=== PATIENT | female | born 1955 | race Two or more races ===

== ENCOUNTER 2023-02-07 09:24 | Emergency (ER) | payer OTHER ==
[~2023-02-07] VITALS: Ht 160 cm; Wt 104.3 kg
[2023-02-07 11:14] LABS: HEMATOCRIT 42.9 % (36.0-45.00); HEMOGLOBIN 13.8 g/dL (12.0-15.00); MEAN CELL VOLUME 87.7 fL (80.00-100.00); MEAN CORPUSCULAR HEMOGLOBIN 28.2 pg (27.00-32.0); MEAN CORPUSCULAR HGB CONC 32.1 g/dl (32.0-36.0); RED BLOOD COUNT 4.89 M/uL (4.00-6.00); RED CELL DISTRIBUTION WIDTH 14.2 % (11.5-14.5)
[2023-02-07 11:53] LABS: URINE APPEARANCE Turbid; URINE BILIRRUBIN Negative (NEGATIVE); URINE BLOOD Large; URINE COLOR Dark Yellow; URINE GLUCOSE Negative (NEGATIVE); URINE LEUKOCYTE Large; URINE NITRATE Negative; URINE PROTEIN 30 (NEGATIVE)
[2023-02-07 11:56] LABS: URINE EPITHELIAL CELLS 11.2 uL (0.0-38.8); URINE RBC 2787.3 uL (0.0-20.8); URINE WBC 1525.7 uL (0.0-23.2)
[2023-02-07 11:58] LABS: BILIRUBIN TOTAL 0.58 mg/dL (0.3-1.2); CALCIUM 9.4 mg/dL (8.5-10.1); CREATININE SERUM 0.88 mg/dL (0.55-1.02); GFR 64.09; GLOBULINA 4.4 G/DL (2.4-3.5); POTASSIUM 4.06 mEq/L (3.5-5.1); TOTAL PROTEIN 8.4 gm/dL (6.4-8.2)
[2023-02-07 12:11] LABS: PLATELET COUNT 185 K/uL (150-450)
[2023-02-07] MEDS ORDERED: CEPHALEXIN500 MG PO (12:12)
== END 2023-02-07 12:44 | disposition home or self-care (01) ==
LOC: ER 09:24
PROVIDERS: General Practice
DX: N39.0 Urinary tract infection, site not specified (principal); K57.30 Diverticulosis of large intestine without perforation or abscess without bleeding
CPT/HCPCS: 36415; 74176; 96372; 99284; J0696

== ENCOUNTER 2023-02-21 07:04 | Emergency (ER) | payer OTHER ==
[~2023-02-21] VITALS: Ht 160 cm; Wt 104.3 kg
[~2023-02-21 07:04] MED LIST: CEPHALEXIN500 MG PO
[2023-02-21 09:15] LABS: HEMATOCRIT 39.7 % (36.0-45.00); HEMOGLOBIN 13.6 g/dL (12.0-15.00); MEAN CELL VOLUME 87.3 fL (80.00-100.00); MEAN CORPUSCULAR HEMOGLOBIN 29.9 pg (27.00-32.0); MEAN CORPUSCULAR HGB CONC 34.3 g/dl (32.0-36.0); PLATELET COUNT 215 K/uL (150-450); RED BLOOD COUNT 4.55 M/uL (4.00-6.00); RED CELL DISTRIBUTION WIDTH 14.1 % (11.5-14.5)
[2023-02-21 09:23] LABS: URINE APPEARANCE Turbid; URINE BILIRRUBIN Negative (NEGATIVE); URINE BLOOD Large; URINE COLOR Orange; URINE GLUCOSE Negative (NEGATIVE); URINE LEUKOCYTE Large; URINE NITRATE Negative; URINE UROBILINOGEN 0.2 E.U./dl
[2023-02-21 09:25] LABS: URINE BACTERIA 115.9 uL (0.0-1933); URINE EPITHELIAL CELLS 12.9 uL (0.0-38.8); URINE RBC 1554.9 uL (0.0-20.8)
[2023-02-21 10:09] LABS: BILIRUBIN TOTAL 0.53 mg/dL (0.3-1.2); CALCIUM 9.3 mg/dL (8.5-10.1); CREATININE SERUM 0.85 mg/dL (0.55-1.02); GFR 66.71; GLOBULINA 4.1 G/DL (2.4-3.5); POTASSIUM 4.15 mEq/L (3.5-5.1); TOTAL PROTEIN 8.1 gm/dL (6.4-8.2)
[2023-02-21 10:22] LABS: URINE PROTEIN 100 (NEGATIVE)
[2023-02-21] MEDS ORDERED: AZO D-MANNOSE500 MG PO (11:41)
== END 2023-02-21 12:58 | disposition home or self-care (01) ==
LOC: ER 07:04
PROVIDERS: General Practice
DX: R31.9 Hematuria, unspecified (principal); N39.0 Urinary tract infection, site not specified; Z20.822 Contact with and (suspected) exposure to COVID-19
CPT/HCPCS: 36415; 96365; 99284; J0744